=== PATIENT | female | born 1945 | race Caucasian/White ===

== ENCOUNTER 2020-03-31 10:37 | Observation (INO) | payer OTHER, SELFPAY ==
[~2020-03-31] VITALS: Ht 154.9 cm; Wt 70.3 kg
[2020-03-31 10:47] VITALS: BP_SYST 195
[2020-03-31] MEDS ORDERED: IOHEXOL 350 mgI/mL, 150 ML INFUS..BTL IV ONE (11:20)
[2020-03-31 11:32] LABS: BASOPHILS % (AUTO) 0.3 % (0.0-2.0); EOSINOPHILS # (AUTO) 0.1 K/uL (0.0-0.4); EOSINOPHILS % (AUTO) 0.7 % (0.0-4.0); HEMATOCRIT 43.9 % (36-48); HEMOGLOBIN 14.7 g/dL (12.0-16.0); LYMPHOCYTES # (AUTO) 0.9 K/uL (1.0-5.5); LYMPHOCYTES % (AUTO) 11.7 % (20.5-51.5); MEAN CORPUSCULAR HEMOGLOBIN 31 pg (27-31); MEAN CORPUSCULAR HGB CONC 34 % (32-36); MEAN CORPUSCULAR VOLUME 93 fL (79.0-98.0); MONOCYTES # (AUTO) 0.5 K/uL (0.0-1.0); MONOCYTES % (AUTO) 5.9 % (1.7-9.3); NEUTROPHILS # (AUTO) 6.5 K/uL (1.8-7.7); NEUTROPHILS % (AUTO) 81.4 % (40.0-70.0); PLATELET COUNT (AUTO) 178 K/uL (130-430); RED BLOOD CELL COUNT(AUTO) 4.71 MIL/uL (4.2-6.2); RED CELL DISTRIBUTION WIDTH 14.3 % (9.0-15.0)
[2020-03-31 11:46] LABS: ANION GAP 5 (5-15); CALCIUM 8.8 mg/dL (8.4-11.0); CHLORIDE 105 mmol/L (98-107); GLUCOSE 130 mg/dL (70-99); POTASSIUM 4.1 mmol/L (3.5-5.1); PROTHROMBIN TIME 10.1 SECS (9.5-12.5); SODIUM SERUM 142 mmol/L (136-145); UREA NITROGEN, BLOOD 16 mg/dL (8-21)
[2020-03-31 11:52] LABS: ALANINE AMINOTRANSFERASE 34 U/L (12-78); ALBUMIN 3.7 g/dL (3.4-4.8); ASPARTATE AMINOTRANSFERASE 32 U/L (10-37); TOTAL BILIRUBIN 0.5 mg/dL (0.0-1.0)
[2020-03-31 12:02] LABS: BILIRUBIN,URINE NEGATIVE (NEGATIVE); BLOOD, URINE NEGATIVE (NEGATIVE); CLARITY/URINE CLEAR (CLEAR); COLOR,URINE YELLOW (YELLOW); GLUCOSE,URINE NEGATIVE (NEGATIVE); KETONES,URINE NEGATIVE (NEGATIVE); LEUKOCYTE ESTERASE ,URINE 1+ (NEGATIVE); NITRITE, URINE POSITIVE (NEGATIVE); PROTEIN URINE NEGATIVE (NEGATIVE); UROBILINOGEN,URINE 0.2 (0.2-1.0)
[2020-03-31 12:15] LABS: BACTERIA,URINE MODERATE /HPF (None Seen); RBC,URINE NONE SEEN /HPF (0-3); TRICHOMONAS,URINE None Seen /HPF (None Seen); YEAST,URINE None Seen /HPF (None Seen)
[2020-03-31] MEDS ORDERED: LOSA25TA3 PO (12:26)
[2020-03-31] MEDS ORDERED: CARV12.548 PO (12:26)
[2020-03-31 13:04] LABS: BARBITURATE, URINE NEGATIVE (NEG <=200); BENZODIAZEPINE, URINE NEGATIVE (NEG <=150); CANNABINOID, URINE NEGATIVE (NEG <=50); COCAINE, URINE NEGATIVE (NEG <=150); METHAMPHETAMINES SCREEN,URINE NEGATIVE (NEG <=500); OPIATE, URINE NEGATIVE (NEG <=100); PHENCYCLIDINE SCREEN,URINE NEGATIVE (NEG <=25); UR TRICYCLIC ANTIDEPRESSANTS NEGATIVE (NEG <=300); URINE AMPHETAMINE NEGATIVE (NEG <=500); URINE METHADONE NEGATIVE (NEG <=200); URINE OXYCODONE SCREEN NEGATIVE (NEG <=100); URINE PROPOXYPHENE SCREEN NEGATIVE (NEG <=300)
[2020-03-31] MEDS ORDERED: cefTRIAXone 1 GM VIAL ONE (13:29)
[2020-03-31] MEDS ORDERED: cefTRIAXone 1 GM in D5W 50 ML IV ONE (13:30)
[2020-03-31 15:35] VITALS: BP_SYST 149
[2020-03-31 16:55] VITALS: BP_SYST 149
[2020-03-31 19:58] VITALS: BP_SYST 137
[2020-03-31] MEDS ORDERED: CARVEDILOL 12.5 MG TABLET (COREG) ONE (21:26)
[2020-03-31] MEDS: CARVEDILOL 12.5 MG TABLET (COREG) PO SCH (21:26)
[2020-03-31] MEDS: NORMAL SALINE 5 ML DISP.SYRIN IVF SCH (21:27)
[2020-04-01] VITALS: BP_SYST 106
[2020-04-01] MEDS: NORMAL SALINE 5 ML DISP.SYRIN IVF SCH (05:42)
[2020-04-01 07:16] LABS: CHOLESTEROL 180 mg/dL (<200); HDL CHOLESTEROL 63 mg/dL (>55); LDL CHOLESTEROL 106 mg/dL (<100); TRIGLYCERIDES 90 mg/dL (30-150)
[2020-04-01] MEDS ORDERED: CARVEDILOL 12.5 MG TABLET (COREG) ONE (08:38)
[2020-04-01] MEDS ORDERED: ASPIRIN 81 MG TABLET(ECOTRIN) ONE (08:39)
[2020-04-01] MEDS: CARVEDILOL 12.5 MG TABLET (COREG) PO SCH (08:59)
[2020-04-01] MEDS ORDERED: LOSARTAN POTASSIUM 25 MG TABLET PO SCH (09:00)
[2020-04-01] MEDS ORDERED: ASPIRIN 81 MG TABLET(ECOTRIN) PO SCH (09:00)
[2020-04-01 09:52] VITALS: BP_SYST 128
[2020-04-01] MEDS ORDERED: ROSU10TA2 PO ×2 (10:00→10:03)
[2020-04-01 10:39] VITALS: BP_SYST 128
== END 2020-04-01 11:10 | disposition home or self-care (01) ==
LOC: SED 10:37 → STU 14:08 → INTOOBSV 14:08 → STU 14:15
PROVIDERS: ADMIT Internal Medicine; ATTEND Internal Medicine
DX: G45.9 Transient cerebral ischemic attack, unspecified (principal); Z20.822 Contact with and (suspected) exposure to COVID-19; I10 Essential (primary) hypertension; E11.9 Type 2 diabetes mellitus without complications; E78.00 Pure hypercholesterolemia, unspecified; Z79.899 Other long term (current) drug therapy
CPT/HCPCS: 36415 ×2; 70496; 70498; 71045; 80053; 80061; 80307; 81000; 84484; 85025; 85610; 85730; 86886; 86900; 86901; 87040; 87086; 87426; 93005; 93306; 96365; 99285; G0378; J0696; Q9967; 76376

== ENCOUNTER 2022-09-27 17:06 | Emergency (ER) | payer OTHER ==
[~2022-09-27] VITALS: Ht 154.9 cm; Wt 70.3 kg
[~2022-09-27 17:06] MED LIST: CARV12.548 PO; LOSA25TA3 PO; ROSU10TA2 PO
[2022-09-27 17:10] VITALS: BP_SYST 186; PULSE 89; RESP 18; TEMP 97; O2SAT 97
--- NOTE | 2022-09-27 17:10 | NUR ---
PT TRIAGED BY WESLEY ROGERS AND TAKEN TO BED 2. ASSUMED CARE. PT HAD SUDDEN ONSET OF RIGHT JAW PAIN, WEAKNESS, N/V, COLD, DIAPHORETIC. FAMILY STATES AT 1600 TODAY. PT IS AAOX4. ON R/A. N/V NOTED AT THIS TIME. PT IS HYPERTENSIVE AT B/P 189/99. HR 88. PT STATES SHE HAS A H/A WITH 8/10 PAIN. DISTAL PULSES NORMAL. SKIN CDI, NO EDEMA. PT PLACED ON MONITOR, VSS. PMH OF HTN, DM, HLD.
--- NOTE | 2022-09-27 17:18 | NUR ---
accjonathan 155 notified MD Agustin
--- NOTE | 2022-09-27 17:23 | NUR ---
EKG OBTAINED AND GIVEN TO DR. MARTINEZ.
--- NOTE | 2022-09-27 17:40 | NUR ---
DR. MARTINEZ AT BEDSIDE TO ASSIST PT.
[2022-09-27] MEDS ORDERED: METOCLOPRAMIDE HCL 10 MG/2 ML VIAL IVP ONE (17:45)
[2022-09-27] MEDS ORDERED: ONDANSETRON HCL 4 MG/2 ML VIAL IVP ONE (17:45)
[2022-09-27] MEDS ORDERED: DIPHENHYDRAMINE INJ 50 MG/ML VIAL IVP ONE (17:45)
--- NOTE | 2022-09-27 17:50 | NUR ---
PT TAKEN FOR CT SCAN.
--- NOTE | 2022-09-27 17:59 | NUR ---
BENEDRYL 25MG IVP, REGLAN 20MG IVP AND ZOFRAN 4MG IVP GIVEN FOR N/V.
[2022-09-27 18:03] LABS: BASOPHILS % (AUTO) 0.3 % (0.0-2.0); EOSINOPHILS # (AUTO) 0.1 K/uL (0.0-0.4); EOSINOPHILS % (AUTO) 1.4 % (0.0-4.0); HEMATOCRIT 43.5 % (36-48); HEMOGLOBIN 14.3 g/dL (12.0-16.0); LYMPHOCYTES # (AUTO) 1.5 K/uL (1.0-5.5); LYMPHOCYTES % (AUTO) 21.5 % (20.5-51.5); MEAN CORPUSCULAR HEMOGLOBIN 31 pg (27-31); MEAN CORPUSCULAR HGB CONC 33 % (32-36); MEAN CORPUSCULAR VOLUME 95 fL (79.0-98.0); MONOCYTES # (AUTO) 0.5 K/uL (0.0-1.0); MONOCYTES % (AUTO) 7.6 % (1.7-9.3); NEUTROPHILS # (AUTO) 4.8 K/uL (1.8-7.7); NEUTROPHILS % (AUTO) 69.2 % (40.0-70.0); PLATELET COUNT (AUTO) 190 K/uL (130-430); RED CELL DISTRIBUTION WIDTH 14.2 % (9.0-15.0)
[2022-09-27 18:06] LABS: ERYTHROCYTE SEDIMENTATION RATE 18 MM/HR (0-20)
[2022-09-27 18:11] LABS: PROTHROMBIN TIME 10.3 SECS (9.5-12.5)
--- NOTE | 2022-09-27 18:12 | NUR ---
DR. MARTINEZ MADE AWARE PT HAS HAD A HEMORRHAGIC STROKE.
[2022-09-27 18:13] LABS: ACETONE, SERUM NEGATIVE (NEGATIVE)
[2022-09-27 18:14] LABS: ALANINE AMINOTRANSFERASE 21 U/L (12-78); ALBUMIN 3.8 g/dL (3.4-4.8); ANION GAP 10 (5-15); ASPARTATE AMINOTRANSFERASE 33 U/L (10-37); CALCIUM 8.7 mg/dL (8.4-11.0); CHLORIDE 103 mmol/L (98-107); CREATININE 0.57 mg/dL (0.55-1.30); GLUCOSE 177 mg/dL (74-106); TOTAL BILIRUBIN 0.4 mg/dL (0.0-1.0); UREA NITROGEN, BLOOD 17 mg/dL (8-21)
[2022-09-27] MEDS ORDERED: niCARdipine 50 MG in D5W 230 ML IV ONE (18:15)
[2022-09-27 18:25] LABS: AMYLASE 28 U/L (0-100); LIPASE 113 U/L (73-393)
--- NOTE | 2022-09-27 18:26 | NUR ---
LABETALOL 10MG IVP GIVEN OVER 5 MINUTES FOR SBP 199/93.
[2022-09-27] MEDS ORDERED: MORPHINE 2 MG/ML INJ. SYRINGE IVP ONE (18:30)
[2022-09-27] MEDS ORDERED: niCARdipine 2.5 MG/ML, 10 ML VIAL (CARDENE) IV ONE (18:42)
[2022-09-27] MEDS ORDERED: niCARdipine 25 MG in D5W 240 ML IV PRN (18:45)
--- NOTE | 2022-09-27 18:45 | NUR ---
NICARDIPINE DRIP INITIATED AT 5MG/HOUR TO MAINTAIN SBP 140-160MMHG.
--- NOTE | 2022-09-27 18:53 | NUR ---
MORPHING 2MG IVP GIVEN FOR H/A 10/02.
[2022-09-27] MEDS ORDERED: LABETALOL 100 MG/ 20ML VIAL IVP ONE (19:00)
--- NOTE | 2022-09-27 19:09 | NUR ---
TRANSFER INFO [facility] DR. ENRIQUEZ [phone] [phone] ETA 1939 SPOKE TO [facility]
--- NOTE | 2022-09-27 19:26 | NUR ---
ENDORSED PT TO WESLEY GARCIA. ALL QUESTIONS AND CONCERNS ADDRESSED.
--- NOTE | 2022-09-27 19:30 | NUR ---
SPB 168/92 NICARDIPINE DRIP INITIATED AT 5MG/HOUR FOR [employer] SBP 140-160MMHG.
--- NOTE | 2022-09-27 19:33 | NUR ---
RECIEVED PT FROM WESLEY NO. FAMILY MADE AWARE FOR TRANSFER TO [facility] PT SIGNED CONSENT FORM. PLAN OF CARE CONTINUES.
--- NOTE | 2022-09-27 19:42 | NUR ---
Patient to be transferred to [facility]. Is being transferred due to higher level of care. Receiving facility has accepting physician and available space. ER physician has signed transfer form. Patient or responsible alliance party has agreed to transfer and signed form. Patient belongings inventoried and will be sent with patient. Copy of nursing notes, lab reports, EKG, Physicians Orders and X-rays to be sent with patient. Report called to WESLEY AGUILERA at receiving facility. Receiving physician is DR. ENRIQUEZ.
--- NOTE | 2022-09-27 19:45 | NUR ---
SBAR REPORT CALLED TO [employer] ADMINISTRATOR AT [facility] WITH [facility] FOR QUESTIONS AND CONCERNS ANSWERED AT THIS TIME.
--- NOTE | 2022-09-27 19:45 | NUR ---
Dania ramirez in ED - 09/27/22 at 2000 by [email or web address] REPORT CALLED TO KENNY OLSON AT [facility].
[2022-09-27 19:50] VITALS: BP_SYST 156; PULSE 91; RESP 15; TEMP 96.5; O2SAT 96
== END 2022-09-27 19:42 | disposition short-term general hospital (02) ==
LOC: SED 17:06
DX: I62.9 Nontraumatic intracranial hemorrhage, unspecified (principal); I63.9 Cerebral infarction, unspecified; E11.9 Type 2 diabetes mellitus without complications; I10 Essential (primary) hypertension; Z79.899 Other long term (current) drug therapy
CPT/HCPCS: 99291; 96375; 96365; 70450; 80053; 82009; 82150; 82962; 83690; 85025; 85610; 85651; 85730; 84484; 36415; 76376; 83605; 82397; J1200; J2765; J2405; J2270